=== PATIENT | female | born 2000 | race Hispanic/Latino ===

== ENCOUNTER 2024-08-25 11:48 | Inpatient (IN) | payer OTHER ==
[2024-08-25] MEDS ORDERED: Bupivacaine 0.25% HCL 30 ML VIAL ONE (12:00)
[2024-08-25 12:52] VITALS: BMI 27.7
[2024-08-25 13:19] LABS: Fetal Membranes Rupture RUPTURE DETECTED (No Rupture)
[2024-08-25] MEDS ORDERED: Ondansetron PF 4 MG/2 ML Vial IVP PRN ×2 (13:34→21:25)
[2024-08-25] MEDS ORDERED: Tranexamic Acid 1,000 MG/10 ML VIAL IVP PRN (13:34)
[2024-08-25] MEDS ORDERED: Acetaminophen 500 MG TAB PO PRN (13:34)
[2024-08-25] MEDS ORDERED: Misoprostol 200 MCG TAB PR PRN (13:34)
[2024-08-25] MEDS ORDERED: Promethazine HCl 25 MG/ML VIAL IM PRN ×2 (13:34→21:25)
[2024-08-25] MEDS ORDERED: Carboprost 250 MCG/ML AMP IM PRN (13:34)
[2024-08-25] MEDS ORDERED: hydrALAZINE 20 MG/ML VIAL SLOW IVP PRN (13:34)
[2024-08-25] MEDS ORDERED: Methylergonovine 0.2 MG/ML VIAL IM PRN (13:34)
[2024-08-25] MEDS ORDERED: Lidocaine 1% (PF) 30 ML VIAL SC PRN (13:34)
[2024-08-25] MEDS ORDERED: Diphenoxylate HCl/Atropine Tablet PO PRN (13:34)
[2024-08-25] MEDS ORDERED: Oxytocin 30 units/NS 500 ML 500 ML IV SCH (13:45)
[2024-08-25 14:56] LABS: Hematocrit 33.9 % (34.9-44.5); Hemoglobin 11.1 g/dL (12.0-15.5); Mean Corpuscular HGB CONC 32.7 g/dL (32.0-36.0); Mean Corpuscular Hemoglobin 27.8 pg (27.0-33.0); Mean Corpuscular Volume 84.8 fL (81.6-98.3); Mean Platelet Volume 11.4 fL (7.4-10.4); Platelet Count 290 10x3/uL (150-450); RBC Distribution Width 14.2 % (11.5-14.5); White Blood Cell (WBC) Count 9.21 10x3/uL (3.5-10.5)
[2024-08-25 15:57] LABS: HBsAg Index 0.16 S/CO (0-0.99); Hep B Surf Ag - L&D Non-Reactive S/CO (NonReactive)
[2024-08-25 15:58] LABS: Syphilis Antibody Nonreactive (Nonreactive); Syphilis Antibody Index 0.06 S/CO (<1.00 Non-Reactive)
[2024-08-25] MEDS: Oxytocin 30 units/NS 500 ML 500 ML IV SCH (16:14)
[2024-08-25] MEDS: Lactated Ringer's 1,000 ML IV SCH (16:14)
[2024-08-25] MEDS: fentaNYL 50 mcg/mL 1 mL Vial ONE (20:45)
[2024-08-25] MEDS: fentaNYL/Ropivacaine Epidural 100 ML ONE (21:18)
[2024-08-25] MEDS: fentaNYL 50 mcg/mL 1 mL Vial SLOW IVP SCH (21:20)
[2024-08-25] MEDS ORDERED: ePHEDrine Sulfate 50 MG/10 ML VIAL SLOW IVP PRN (21:25)
[2024-08-25] MEDS ORDERED: Acetaminophen 325 MG TAB PO PRN (21:25)
[2024-08-25] MEDS ORDERED: Lactated Ringer's 500 ML IV PRN (21:25)
[2024-08-25] MEDS ORDERED: Moisturizing Cream (Eucerin) 113 GM JAR TOP PRN (21:25)
[2024-08-25] MEDS ORDERED: diphenhydrAMINE 50 MG/ML VIAL IVP PRN (21:25)
[2024-08-25] MEDS ORDERED: Naloxone HCl 0.4 mg/ml Vial IVP PRN ×2 (21:25)
[2024-08-25] MEDS ORDERED: fentaNYL 2 mcg/Ropivacaine 0.2% Epidural 100 ML CADD EPIDURAL SCH (21:30)
[2024-08-25] MEDS ORDERED: Communication Order-Pharmacy FS SCH (21:30)
[2024-08-25] MEDS: Ibuprofen 800 MG TAB PO PRN (23:34)
[2024-08-26] MEDS ORDERED: Bisacodyl 10 MG SUPP PR PRN (00:37)
[2024-08-26] MEDS ORDERED: Promethazine HCl 25 MG/ML VIAL IM PRN (00:37)
[2024-08-26] MEDS ORDERED: Misoprostol 200 MCG TAB VAG PRN (00:37)
[2024-08-26] MEDS ORDERED: hydrALAZINE 20 MG/ML VIAL SLOW IVP PRN (00:37)
[2024-08-26] MEDS ORDERED: Benzocaine-Menthol 82.5 ML CAN TOP PRN (00:37)
[2024-08-26] MEDS ORDERED: Methylergonovine 0.2 MG/ML VIAL IM PRN (00:37)
[2024-08-26] MEDS ORDERED: Milk Of Magnesia 30 ML UDCUP PO PRN (00:37)
[2024-08-26] MEDS ORDERED: Ondansetron PF 4 MG/2 ML Vial IVP PRN (00:37)
[2024-08-26] MEDS ORDERED: Preparation H Ointment 28 GM TUBE PR PRN (00:37)
[2024-08-26] MEDS ORDERED: Oxytocin 30 units/NS 500 ML 500 ML IV SCH (00:45)
[2024-08-26 05:27] LABS: #Basophils 0.03 10x3/uL (0.0-0.2); #Eosinophils Less than 0.03 10x3/uL (0.0-0.5); #Neutrophils 11.25 10x3/uL (1.5-8.4); %Basophils 0.2 % (0.0-2.0); %Eosinophils 0.1 % (0.0-6.0); %Lymphocytes 13.6 % (18.0-47.0); %Monocytes 7.6 % (0.0-10.0); %Neutrophils 78.2 % (40.0-75.0); Hematocrit 26.9 % (34.9-44.5); Mean Corpuscular HGB CONC 33.5 g/dL (32.0-36.0); Mean Corpuscular Hemoglobin 28.6 pg (27.0-33.0); Mean Corpuscular Volume 85.4 fL (81.6-98.3); Mean Platelet Volume 10.4 fL (7.4-10.4); Platelet Count 220 10x3/uL (150-450); RBC Distribution Width 14.4 % (11.5-14.5); Red Blood Cell (RBC) Count 3.15 10x6/uL (3.90-5.03)
[2024-08-26] MEDS: Boostrix 0.5 ML (Tdap) VIAL (>/=7 yrs of age) IM ONE (06:50)
[2024-08-26] MEDS: Ibuprofen 800 MG TAB PO SCH (08:51)
[2024-08-26] MEDS: Prenatal Vitamin 1 TAB PO SCH (08:52)
[2024-08-26] MEDS: Docusate 100 MG CAP PO SCH (08:52)
[2024-08-26] MEDS: Ferrous Sulfate 325 MG TAB PO SCH ×2 (08:52→17:14)
[2024-08-27 05:35] LABS: #Basophils 0.03 10x3/uL (0.0-0.2); #Eosinophils 0.04 10x3/uL (0.0-0.5); #Monocytes 1.07 10x3/uL (0.0-1.1); #Neutrophils 8.19 10x3/uL (1.5-8.4); %Basophils 0.3 % (0.0-2.0); %Eosinophils 0.3 % (0.0-6.0); %Lymphocytes 20.8 % (18.0-47.0); %Neutrophils 69.2 % (40.0-75.0); Hematocrit 29.8 % (34.9-44.5); Mean Corpuscular HGB CONC 33.6 g/dL (32.0-36.0); Mean Corpuscular Hemoglobin 28.8 pg (27.0-33.0); Mean Corpuscular Volume 85.9 fL (81.6-98.3); Mean Platelet Volume 10.3 fL (7.4-10.4); Platelet Count 259 10x3/uL (150-450); RBC Distribution Width 14.8 % (11.5-14.5); Red Blood Cell (RBC) Count 3.47 10x6/uL (3.90-5.03); White Blood Cell (WBC) Count 11.84 10x3/uL (3.5-10.5)
[2024-08-27 09:58] VITALS: BP 109/66; TEMP 97.6
== END 2024-08-27 11:10 | disposition home or self-care (01) | DRG 807 ==
LOC: CSHLD/OP 11:48 → CSHLD 13:43 → CSHPED 08-26 00:55 → CSHPP 08-26 15:15
PROVIDERS: ADMIT Obstetrics & Gynecology; ATTEND Obstetrics & Gynecology
PROC: 10E0XZZ Delivery of Products of Conception, External Approach (ICD-10-PCS; principal; 2024-08-25)
DX: O42.02 Full-term premature rupture of membranes, onset of labor within 24 hours of rupture (principal); Z37.0 Single live birth; Z3A.38 38 weeks gestation of pregnancy; O99.02 Anemia complicating childbirth
CPT/HCPCS: 36415; 51702; 84112; 85025; 85027; 86780; 86850; 86900; 86901; 87340; 87480; 87510; 87660; 99285; J0665; J2590; J3010; J7120